=== PATIENT | male | born 1945 | race Caucasian/White ===

== ENCOUNTER → 2017-01-23 | Outpatient (CLI) | payer MEDICARE, OTHER ==
[~2017-01-23] MED LIST: ASPI325T4 PO; HYDR-3240 PO; LISI-167 PO; METO-95 PO; METO50TA4 PO; OMEP-110 PO; SENN-25 PO; SIMV20TA3 PO; SIMV40TA3 PO; TERA2CAP3 PO
== END | disposition home or self-care (01) ==
LOC: CVU 09:40
PROVIDERS: ATTEND Surgery
DX: I65.23 Occlusion and stenosis of bilateral carotid arteries (principal)
CPT/HCPCS: 93880

== ENCOUNTER → 2018-03-11 | Outpatient (CLI) | payer MEDICARE, OTHER ==
[~2018-03-11] MED LIST changes: +ASPI325T17 PO; -ASPI325T4 PO
== END | disposition home or self-care (01) ==
LOC: CVU 12:38
PROVIDERS: ATTEND Surgery
DX: I65.23 Occlusion and stenosis of bilateral carotid arteries (principal); I10 Essential (primary) hypertension; E78.5 Hyperlipidemia, unspecified; Z87.891 Personal history of nicotine dependence
CPT/HCPCS: 93880

== ENCOUNTER 2018-05-05 08:09 | Emergency (ER) | payer MEDICARE, OTHER ==
[~2018-05-05] VITALS: Ht 177.8 cm; Wt 77.0 kg
[~2018-05-05 08:09] MED LIST changes: +FINA1TAB16 PO
[2018-05-05 08:11] VITALS: BP 165/83
== END 2018-05-05 08:55 | disposition home or self-care (01) ==
LOC: ED 08:49
DX: B37.2 Candidiasis of skin and nail (principal); N49.2 Inflammatory disorders of scrotum; K21.9 Gastro-esophageal reflux disease without esophagitis; E78.5 Hyperlipidemia, unspecified; E11.9 Type 2 diabetes mellitus without complications; Z86.73 Personal history of transient ischemic attack (TIA), and cerebral infarction without residual deficits
CPT/HCPCS: 99281

== ENCOUNTER 2019-03-26 12:18 | Outpatient (CLI) | payer MEDICARE, OTHER | END 2019-03-26 23:59 | disposition home or self-care (01) | LOC: CVU 12:18 | PROVIDERS: ATTEND Surgery | DX: I65.23 Occlusion and stenosis of bilateral carotid arteries (principal) | CPT/HCPCS: 93880 ==

== ENCOUNTER 2019-04-07 07:39 | Outpatient (CLI) | payer MEDICARE, OTHER | END 2019-04-07 23:59 | disposition home or self-care (01) | LOC: CFH 07:39 | PROVIDERS: ATTEND Internal Medicine Cardiovascular Disease | DX: I08.8 Other rheumatic multiple valve diseases (principal); I11.9 Hypertensive heart disease without heart failure | CPT/HCPCS: 78452; 93017; 93306; A9502; J2785 ==

== ENCOUNTER → 2020-08-05 | Outpatient (CLI) | payer MEDICARE, OTHER ==
[~2020-08-05] MED LIST changes: +SIMV20TA19 PO; -SIMV20TA3 PO; +SIMV40TA20 PO; -SIMV40TA3 PO
== END | disposition home or self-care (01) ==
LOC: CVU 10:52
PROVIDERS: ATTEND Surgery
DX: I65.23 Occlusion and stenosis of bilateral carotid arteries (principal); I10 Essential (primary) hypertension; E78.5 Hyperlipidemia, unspecified
CPT/HCPCS: 93880

== ENCOUNTER 2021-04-26 07:04 | Outpatient (CLI) | payer MEDICARE, OTHER ==
[~2021-04-26 07:04] MED LIST changes: +HYDR-2214 PO; -HYDR-3240 PO
[2021-04-26] MEDS ORDERED: REGADENOSON 0.4 MG/5 ML SYRINGE ONE (07:23)
== END 2021-04-26 23:59 | disposition home or self-care (01) ==
LOC: CVU 07:04 → CFH 23:59
PROVIDERS: ATTEND Internal Medicine Cardiovascular Disease
DX: I10 Essential (primary) hypertension (principal); I25.10 Atherosclerotic heart disease of native coronary artery without angina pectoris
CPT/HCPCS: 78452; 93017; 93306; A9502; J2785